=== PATIENT | female | born 2000 | race Caucasian/White ===

== ENCOUNTER 2020-08-19 11:40 | Emergency (ER) | payer MEDICAID ==
[~2020-08-19] VITALS: Ht 162.6 cm; Wt 68.0 kg
[2020-08-19 12:27] LABS: BASOPHILS % 0.6 % (0.0-2.0); HEMATOCRIT. 41.5 % (36.0-48.0); HEMOGLOBIN. 14.8 g/dL (12.0-16.0); LYMPHOCYTES % 7.3 % (20.0-50.0); MEAN CORPUSCULAR HEMOGLOBIN 31.5 pg (28.0-32.0); MEAN CORPUSCULAR VOLUME 88.4 fL (81.0-99.0); MEAN PLATELET VOLUME 7.9 fl (7.4-10.4); MONOCYTES % 2.5 % (2.0-8.0); NEUTROPHILS % 89.6 % (40.0-76.0); PLATELET 308 x1000/uL (130-400); RED CELL DISTRIBUTION WIDTH 11.9 % (11.6-14.6)
[2020-08-19 12:34] LABS: CHLORIDE 108 mEq/L (98-107)
[2020-08-19] MEDS ORDERED: KETOROLAC 30MG/ML VIAL IV STA (13:11)
[2020-08-19] MEDS ORDERED: ONDANSETRON HCL 4MG/2ML INJ IV ONE (13:15)
[2020-08-19] MEDS ORDERED: SODIUM CHLORIDE 0.9% 1,000 ML IV ONE (13:15)
[2020-08-19 13:16] LABS: CLARITY URINE TURBID (CLEAR); COLOR URINE YELLOW (YELLOW); KETONES URINE 1+ (NEGATIVE); LEUKOCYTE ESTERASE URINE NEGATIVE (NEGATIVE); NITRITE URINE NEGATIVE (NEGATIVE); OCCULT BLOOD URINE 2+ (NEGATIVE); PH URINE 8.5 (4.5-8.0); PROTEIN URINE 1+ (NEGATIVE); SPECIFIC GRAVITY URINE 1.032 (1.005-1.030)
[2020-08-19] MEDS ORDERED: IBUP-2029 MT (14:15)
[2020-08-19 14:35] VITALS: BP 110/60
== END 2020-08-19 14:50 | disposition home or self-care (01) ==
LOC: ER 11:40
DX: N23 Unspecified renal colic (principal)
CPT/HCPCS: 36415; 74176; 80053; 81003; 81025; 83690; 85025; 96361; 96374; 96375; 99284; J1885; J2405; J7030; Z7610